=== PATIENT | male | born 1955 | race Two or more races ===

== ENCOUNTER 2024-07-20 13:36 | Outpatient (AMB) | payer OTHER, SELFPAY ==
--- NOTE | 2024-07-20 14:02 | PD.RESCLINIC ---
Vital Signs 07/20/24 14:23 Height 1.6 m Height Method Stated Weight 66.451 kg Weight Measurement Method Standing Scale BMI 25.9 BP 116/66 Blood Pressure Source Automatic Cuff Blood Pressure Location Left Upper Arm Position Sitting Respiration 17 Pulse 91 Pulse Source Monitor Temp 98.8 F Temp Source Oral Allergies/Meds Allergies & Medications Allergies No Known Allergies Allergy (Verified 07/20/24 14:24) Medication Reconciliation needle (disp) 25 gauge 25 gauge x 5/8 #1 ea 10/23/21 [Rx Confirmed 07/20/24] pen needle, diabetic 32 gauge x 1/4 (Droplet Pen Needle) 11/18/21 [History Confirmed 07/20/24] blood-glucose meter,continuous ([employer] [place] 3 [place]) #2 ea 03/28/24 [Rx Confirmed 07/20/24] blood-glucose meter (Accu-Chek Guide Glucose Meter) #1 ea 04/11/24 [Rx Confirmed 07/20/24] amlodipine 10 mg tablet 10 mg PO QDAY #30 tabs 07/13/24 [Rx Confirmed 07/20/24] atorvastatin 20 mg tablet 20 mg PO QDAY #30 tabs 07/13/24 [Rx Confirmed 07/20/24] clopidogrel 75 mg tablet 75 mg PO QDAY #30 tabs 07/13/24 [Rx Confirmed 07/20/24] dicyclomine 20 mg tablet 20 mg PO TID #90 tabs 07/13/24 [Rx Confirmed 07/20/24] insulin glargine 100 unit/mL (3 mL) subcutaneous pen (Basaglar KwikPen U-100 Insulin) 15 unit subcut QDAY 07/13/24 [History Confirmed 07/20/24] losartan 25 mg tablet 50 mg (2 x 25 mg) PO QDAY #30 tabs 07/13/24 [Rx Confirmed 07/20/24] metformin 1,000 mg tablet 1,000 mg PO BID #60 tabs 07/13/24 [Rx Confirmed 07/20/24] semaglutide 14 mg tablet (Rybelsus) 14 mg PO QDAY #30 tabs 07/13/24 [Rx Confirmed 07/20/24] pen needle, diabetic 32 gauge x 1/4 (Comfort EZ Pen [place]) #100 ea 08/03/24 [Rx] blood sugar diagnostic (OneTouch Verio test strips) #100 ea 08/20/24 [Rx] lancets 28 gauge (Lancets,Thin) #100 ea 08/20/24 [Rx] MA Intake Visit Data Collection New Patient or Established: Established Patient (seen at [facility] within 3 years) Seen by Clinical Staff ONLY (RN/MA): No Pain Present Currently: No Pain scale:: 0 Pain Scale Used: Chambers-Orellana/Numerical PCP or OBGYN visit in last 3 months: Yes Smoking Status Smoking Status: Never smoker Immunization / Flu Flu Vaccine in the Last 12 Months: No Flu Vaccine Exclusion Criteria: No Exclusion Criteria Past Medical History Past Medical History NEUROLOGIC: Negative Neurological Disorders, Cerebrovascular Accident, Transient Ischemic Attacks (TIA), Dementia, Alzheimer's Disease, Parkinson's Disease, Brain Tumor, Meningitis, Seizures, Epilepsy, Multiple Sclerosis, Cerebral Palsy, Amyotrophic Lateral Sclerosis (ALS/Giuliana Gehrig's), Guillain-[place] Syndrome, Spina Bifida, Paralysis, Peripheral Neuropathy, Silva's Palsy, Subdural Hematoma, Migraine, Head Trauma, Spinal Cord Injury or Traumatic Brain Injury CARDIAC: Positive Peripheral Vascular Disease and Hypertension; Negative Cardiac Disorders, Myocardial Infarction, Cardiac Arrhythmia, Atrial Fibrillation, Angina, Heart Murmur, Coronary Artery Disease, Atherosclerotic Heart Disease, Hypercholesterolemia, Aneurysm, Congestive Heart Failure, Valvular Heart Disease, Rheumatic Fever, Edema, Pericarditis, Cellulitis, Deep Vein Thrombosis, Hypotension or Varicose Veins RESPIRATORY: Negative Chronic Obstructive Pulmonary Disease (COPD) or Asthma GASTROINTESTINAL: Negative Gastrointestinal Disorders, Hepatitis, Cirrhosis, Pancreatitis, Celiac Disease, Gall Bladder Disease, Gastrointestinal Bleed, Esophageal Varices, Hubbard's Esophagus, Colitis, Ulcerative Colitis, Diverticulitis, Diverticulosis, Ulcer, Irritable Bowel, Crohn's Disease, Obstructive Bowel, Hiatal Hernia, Hemorrhoids, Gastroesophageal Reflux Disease or Obesity GENITOURINARY: Negative Genitourinary Disorders, Renal Disease, Kidney Stones, Polycystic Kidney Disease, Neurogenic Bladder, Inguinal Hernia, Dialysis or Benign Prostatic Hyperplasia REPRODUCTIVE: Negative Fibroids or Testicular Cancer MUSCULOSKELETAL: Negative Muscular Dystrophy, Myasthenia Gravis, Marfan's Syndrome, Arthritis, Rheumatoid Arthritis, Osteoporosis, Degenerative Disk Disease, Gout, Scoliosis, Fibromyalgia, Fractures, Degenerative Joint Disease, Osteomyelitis or Poliovirus ENT: Negative Cataracts, Glaucoma, Blind, Retinal Detachment, Macular Degeneration, Ear Infection, Deafness, Head Trauma or Eye Prosthesis ENDOCRINE: Positive Diabetes Mellitus Type 1 and Diabetes Mellitus Type 2; Negative Endocrine Disorders, Hypoglycemia, Casandra's Syndrome, [place]'s Disease, Hyperthyroidism, Hypothyroidism, Parathyroid Disease, Pituitary Disease, Systemic Lupus Erythematosus, Syndrome of Inappropriate Antidiuretic Hormone (SIADH), Adrenal Disease or Graves' Disease HEMATOLOGIC: Positive Anemia; Negative Blood Disorders, Leukemia, Hemophilia, Thalassemia, Sickle Cell Disease or Clotting Problems OTHER HISTORY: Negative Blood Transfusions, Blood Transfusion Reaction, Anesthesia Reactions, Organ Transplant, MRSA, VRSA, Vancomycin-Resistant Enterococci, Clostridium Difficile, Cancer or Testicular Cancer Family History FAMILY HISTORY: Negative Family Psychiatric Problems, Family Respiratory Disorders, Family Cardiac Disorders, Family Gastrointestinal Problems, Family Cancer, Family Surgery or Family Anesthesia Reaction Surgical History SURGICAL: Negative Cardiac Surgery, Pacemaker, Endocrine Surgery, Thyroidectomy, Ear Surgery, Tympanostomy Tube, Eye Surgery, Nose Surgery, Oral Surgery, Tonsillectomy, Adenoidectomy, Cochlear Implant, Corneal Transplant, Throat Surgery, Abdominal Surgery, Tracheostomy, Nephrectomy, Joint Replacement, Neurologic Surgery, Vasectomy or Organ Transplant Social History SMOKING STATUS: Smoking status: Never smoker SECOND HAND EXPOSURE: second hand exposure: No ALCOHOL: Alcohol Intake: Never ALCOHOL FREQUENCY: Alcohol Intake Frequency: 0-2 Drinks per Day HOUSING: Housing: House LIVES WITH: Lives With: Spouse Patient Brittany Marelytigist Social History Living Situation History Housing: House Housing Other:: pt lives with and dtr Tobacco History Smoking Status: Never smoker Second Hand Smoke Exposure: No Alcohol History Alcohol Intake: Never Alcohol Intake Frequency: 0-2 Drinks per Day Review of Systems Report any current symptoms Only answer those that you have currently: Past Medical History Past Medical History Have you ever been diagnosed with any of the following: Neurological Problems Cerebrovascular Accident (CVA): No Transient Ischemic Attacks (TIA): No Dementia: No Alzheimer's Disease: No Parkinson's Disease: No Brain Tumor: No Meningitis: No Seizures: No Epilepsy: No Multiple Sclerosis: No Cerebral Palsy: No Amyotrophic Lateral Sclerosis (ALS/Giuliana Gehrig's): No Guillain-[place] Syndrome: No Spina Bifida: No Paralysis: No Peripheral Neuropathy: No Silva's Palsy: No Subdural Hematoma: No Migraine: No Head Trauma: No Spinal Cord Injury: No Traumatic Brain Injury: No Cardiology Problems Myocardial Infarction: No Cardiac Arrhythmia: No Atrial Fibrillation: No Angina: No Heart Murmur: No Coronary Artery Disease: No Atherosclerotic Heart Disease: No Peripheral Vascular Disease: Yes Hypercholesterolemia: No Aneurysm: No Congestive Heart Failure: No Valvular Heart Disease: No Rheumatic Fever: No Edema: No Pericarditis: No Cellulitis: No Deep Vein Thrombosis: No Hypertension: Yes Hypotension: No Varicose Veins: No Respiratory Problems Chronic Obstructive Pulmonary Disease (COPD): No Asthma: No Stomache/Intestinal Problems Hepatitis: No Cirrhosis: No Pancreatitis: No Celiac Disease: No Gall Bladder Disease: No Gastrointestinal Bleed: No Esophageal Varices: No Hubbard's Esophagus: No Colitis: No Ulcerative Colitis: No Diverticulitis: No Diverticulosis: No Ulcer: No Irritable Bowel: No Crohn's Disease: No Obstructive Bowel: No Hiatal Hernia: No Hemorrhoids: No Gastroesophageal Reflux Disease: No Obesity: No Genital/Urinary Problems Renal Disease: No Kidney Stones: No Polycystic Kidney Disease: No Neurogenic Bladder: No Inguinal Hernia: No Dialysis: No Benign Prostatic Hyperplasia: No Reproductive Problems Fibroids: No Testicular Cancer: No Musculoskeletal Problems Muscular Dystrophy: No Myasthenia Gravis: No Marfan's Syndrome: No Arthritis: No Rheumatoid Arthritis: No Osteoporosis: No Degenerative Disk Disease: No Gout: No Scoliosis: No Fibromyalgia: No Fractures: No Degenerative Joint Disease: No Osteomyelitis: No Poliovirus: No Head,Eye,Nose,Throat Problems Cataracts: No Glaucoma: No Blind: No Retinal Detachment: No Macular Degeneration: No Chronic Ear Infections: No Deafness: No Eye Prosthesis: No Endocrine Problems Diabetes Mellitus Type 1: Yes Diabetes Mellitus Type 2: Yes Hypoglycemia: No Berkey's Syndrome: No Carlitos's Disease: No Hyperthyroidism: No Hypothyroidism: No Parathyroid Disease: No Pituitary Disease: No Systemic Lupus Erythematosus: No Syndrome of Inappropriate Antidiuretic Hormone: No Adrenal Disease: No Graves' Disease: No Blood Problems Anemia: Yes Leukemia: No Hemophilia: No Thalassemia: No Sickle Cell Disease: No Clotting Problems: No Other Problems Blood Transfusions: No Blood Transfusion Reaction: No Anesthesia Reactions: No Organ Transplant: No MRSA: No VRSA: No Vancomycin-Resistant Enterococci: No Clostridium Difficile: No Cancer: No Surgical History Pacemaker: No Thyroidectomy: No History of Present Illness HPI Narrative Significant Past Medical History: Screening Dates Last Physical: Men?s Health -Abdominal U/S (AAA Screen ? 65-75 yr who have ever smoked): non smopker -PSA: negative Colon cancer screening -Colonoscopy (>=50 yrs): none -Cologuard: 2023 negative Diabetes patients -Ophthalmology Evaluation: 2023 -Monofilament: yes, negative -HbA1c: 5.5 (07/13/24) -Lipid Screen: 2022 Pneumonia Vaccine : Flu Vaccine (everyone): Tetanus (every 10 yrs): Vision Screen: Hearing Screen : Optometry: Dental: Objective/Exam Narrative Physical exam: Constitutional: AOx3, able to speak full sentences HEENT: NC/AT, PERRLA, oral mucosa moist, neck supple CVS: RRR, S1-S2 present, no murmurs RESP: CTAB GI: non distended, non tender to palpation, NBS MSK: full ROM, no peripheral edema, peripheral pulses present except RLE, RBKA Skin: warm and dry, no rashes Neuro: crop duster helper II-XII grossly intact. Sensation grossly intact. Assessment & Plan Diagnosis / Problem List (1) DM2 (diabetes mellitus, type 2): Status: Acute Qualifiers: Diabetes mellitus complication status: with other specified complication Diabetes mellitus longterm insulin use: with terminal clerk use Qualified Code(s): E11.69 - Type 2 diabetes mellitus with other specified complication; Z79.4 - [facility]CI (current) use of insulin Assessment & Plan: A1c was 9.3 (2021) A1c was 7.4 (04/2024) uACR was 4 (04/2024) Plan: -continue current management -order labs (2) HLD (hyperlipidemia): Status: Acute Qualifiers: Hyperlipidemia type: mixed hyperlipidemia Qualified Code(s): E78.2 - Mixed hyperlipidemia Assessment & Plan: last known LDL was 40 (2021) Plan: -low does statin (3) Hypertension: Status: Acute Qualifiers: Hypertension type: primary hypertension Qualified Code(s): I10 - Essential (primary) hypertension Assessment & Plan: controlled Plan: -continue current management -DASH diet recommended -physical activity recommended (4) Atherosclerosis of [place] arteries of extremities with gangrene, right leg: Status: Acute Assessment & Plan: controlled/asymptomatic Plan: -cont plavix (5) Diabetes mellitus with foot ulcer and gangrene: Status: Acute Assessment & Plan: stable, no acute problems at this time Plan: -follow clinically Additional Assessment Attending note: I, Reji Solares MD, attest that I was physically present for the simon portions of the service and evaluated the patient with the resident and I reviewed and discussed the case with the resident and agree with the resident's findings and plans of care as documented above. Follow-up visit. Diabetes self-care reviewed including diet, exercise, footcare, eye care. Most recent hemoglobin A1c available is 5.5 from June. Continue with present medication regimen. We will update labs at the 3-month point. Tolerating low-dose statin. Blood pressure under reasonable control. Remains on Plavix for PAD/atherosclerosis. Status post right BKA. Reji Solares MD Advanced Care Planning Advance care planning discussed with:: patient and significant other Physician Billing Established Patient Established Patient: E/M Level 3-CPT 91956 Office Procedures [facility] Level of Care Nursing/Assessment Patient Status: Established Patient Nursing Assessment/Reassessment: Medication Reconciliation, Update PMH in EMR and Vital Signs Coordination of Care: Complex Care and Chronic Disease 1-5, Education Complex Pt/Fam, Results/Orders obtained and Staff clarify orders Established Patient Charge Established Patient Point Assignment: 90 Established Patient Point Charge: EP Level 3 (80-115)
[2024-07-20 14:23] VITALS: BP 116/66; PULSE 91; RESP 17; TEMP 37.1; BMI 25.9
== END 2024-07-20 14:30 | disposition home or self-care (01) ==
LOC: HODAHC 13:36
PROVIDERS: PCP Student in an Organized Health Care Education/Training Program; Referring Provider Student in an Organized Health Care Education/Training Program; Supervising Provider Internal Medicine; Visit Provider Student in an Organized Health Care Education/Training Program
DX: E11.51 Type 2 diabetes mellitus with diabetic peripheral angiopathy without gangrene (principal); I70.201 Unspecified atherosclerosis of native arteries of extremities, right leg; E78.2 Mixed hyperlipidemia; I10 Essential (primary) hypertension; Z79.4 Long term (current) use of insulin; E11.621 Type 2 diabetes mellitus with foot ulcer; L97.509 Non-pressure chronic ulcer of other part of unspecified foot with unspecified severity
CPT/HCPCS: 99213; G0463

== ENCOUNTER 2024-10-26 14:28 | Outpatient (AMB) | payer OTHER, SELFPAY ==
--- NOTE | 2024-10-26 14:16 | ACNOTE_ITS ---
Vital Signs 10/26/24 14:18 Height 1.6 m Height Method Stated Weight 66.451 kg Weight Measurement Method Standing Scale BMI 25.9 BP 114/69 Blood Pressure Source Automatic Cuff Blood Pressure Location Left Upper Arm Position Sitting Respiration 18 Pulse 96 Pulse Source Monitor Temp 98.2 F Temp Source Oral Pulse Oximetry (%) 95 Oxygen Delivery Method Room Air Allergies/Meds Allergies & Medications Allergies No Known Allergies Allergy (Verified 10/26/24 14:19) Medication Reconciliation needle (disp) 25 gauge 25 gauge x 5/8 #1 ea 10/23/21 [Rx Confirmed 11/09/24] blood-glucose meter,continuous (MongoSluiceyle Mike 3 [place]) #2 ea 03/28/24 [Rx Confirmed 11/09/24] blood-glucose meter (Accu-Chek Guide Glucose Meter) #1 ea 04/11/24 [Rx Confirmed 11/09/24] amlodipine 10 mg tablet 10 mg PO QDAY #30 tabs 11/09/24 [Rx] atorvastatin 20 mg tablet 20 mg PO QDAY #30 tabs 11/09/24 [Rx] blood sugar diagnostic (OneTouch Verio test strips) #100 ea 11/09/24 [Rx] clopidogrel 75 mg tablet 75 mg PO QDAY #30 tabs 11/09/24 [Rx] dicyclomine 20 mg tablet 20 mg PO TID #90 tabs 11/09/24 [Rx] insulin glargine 100 unit/mL (3 mL) subcutaneous pen (Basaglar KwikPen U-100 Insulin) 15 unit (0.15 mL) subcut QDAY #15 mL 11/09/24 [Rx] lancets 28 gauge (Lancets,Thin) #100 ea 11/09/24 [Rx] losartan 25 mg tablet 50 mg (2 x 25 mg) PO QDAY #30 tabs 11/09/24 [Rx] metformin 1,000 mg tablet 1,000 mg PO BID #60 tabs 11/09/24 [Rx] pen needle, diabetic 32 gauge x 1/4 (Comfort EZ Pen [place]) #100 ea 11/09/24 [Rx] MA Intake Visit Data Collection New Patient or Established: Established Patient (seen at [facility] within 3 years) Seen by Clinical Staff ONLY (RN/MA): No Pain Present Currently: No Pain scale:: 0 Pain Scale Used: [employer]-[place]rell[employer] Required: No PCP or OBGYN visit in last 3 months: Yes Do You Feel Safe at Home: Yes Authorities Contacted: N/A Smoking Status Smoking Status: Never smoker Immunization / Flu Flu Vaccine in the Last 12 Months: No Flu Vaccine Exclusion Criteria: No Exclusion Criteria Past Medical History Past Medical History NEUROLOGIC: Negative Neurological Disorders, Cerebrovascular Accident, Transient Ischemic Attacks (TIA), Dementia, Alzheimer's Disease, Parkinson's Disease, Brain Tumor, Meningitis, Seizures, Epilepsy, Multiple Sclerosis, Cerebral Palsy, Amyotrophic Lateral Sclerosis (ALS/Giuliana Gehrig's), Guillain-[place] Syndrome, Spina Bifida, Paralysis, Peripheral Neuropathy, Silva's Palsy, Subdural Hematoma, Migraine, Head Trauma, Spinal Cord Injury or Traumatic Brain Injury CARDIAC: Positive Peripheral Vascular Disease and Hypertension; Negative Cardiac Disorders, Myocardial Infarction, Cardiac Arrhythmia, Atrial Fibrillation, Angina, Heart Murmur, Coronary Artery Disease, Atherosclerotic Heart Disease, Hypercholesterolemia, Aneurysm, Congestive Heart Failure, Valvular Heart Disease, Rheumatic Fever, Edema, Pericarditis, Cellulitis, Deep Vein Thrombosis, Hypotension or Varicose Veins RESPIRATORY: Negative Chronic Obstructive Pulmonary Disease (COPD) or Asthma GASTROINTESTINAL: Negative Gastrointestinal Disorders, Hepatitis, Cirrhosis, Pancreatitis, Celiac Disease, Gall Bladder Disease, Gastrointestinal Bleed, Esophageal Varices, Hubbard's Esophagus, Colitis, Ulcerative Colitis, Diverticulitis, Diverticulosis, Ulcer, Irritable Bowel, Crohn's Disease, Obstructive Bowel, Hiatal Hernia, Hemorrhoids, Gastroesophageal Reflux Disease or Obesity GENITOURINARY: Negative Genitourinary Disorders, Renal Disease, Kidney Stones, Polycystic Kidney Disease, Neurogenic Bladder, Inguinal Hernia, Dialysis or Benign Prostatic Hyperplasia REPRODUCTIVE: Negative Fibroids or Testicular Cancer MUSCULOSKELETAL: Negative Muscular Dystrophy, Myasthenia Gravis, Marfan's Syndrome, Arthritis, Rheumatoid Arthritis, Osteoporosis, Degenerative Disk Disease, Gout, Scoliosis, Fibromyalgia, Fractures, Degenerative Joint Disease, Osteomyelitis or Poliovirus ENT: Negative Cataracts, Glaucoma, Blind, Retinal Detachment, Macular Deg eneration, Ear Infection, Deafness, Head Trauma or Eye Prosthesis ENDOCRINE: Positive Diabetes Mellitus Type 1 and Diabetes Mellitus Type 2; Negative Endocrine Disorders, Hypoglycemia, Casandra's Syndrome, [place]'s Disease, Hyperthyroidism, Hypothyroidism, Parathyroid Disease, Pituitary Disease, Systemic Lupus Erythematosus, Syndrome of Inappropriate Antidiuretic Hormone (SIADH), Adrenal Disease or Graves' Disease HEMATOLOGIC: Positive Anemia; Negative Blood Disorders, Leukemia, Hemophilia, Thalassemia, Sickle Cell Disease or Clotting Problems OTHER HISTORY: Negative Blood Transfusions, Blood Transfusion Reaction, Anesthesia Reactions, Organ Transplant, MRSA, VRSA, Vancomycin-Resistant Enterococci, Clostridium Difficile, Cancer or Testicular Cancer Family History FAMILY HISTORY: Negative Family Psychiatric Problems, Family Respiratory Disorders, Family Cardiac Disorders, Family Gastrointestinal Problems, Family Cancer, Family Surgery or Family Anesthesia Reaction Surgical History SURGICAL: Negative Cardiac Surgery, Pacemaker, Endocrine Surgery, Thyroidectomy, Ear Surgery, Tympanostomy Tube, Eye Surgery, Nose Surgery, Oral Surgery, Tonsillectomy, Adenoidectomy, Cochlear Implant, Corneal Transplant, Throat Surgery, Abdominal Surgery, Tracheostomy, Nephrectomy, Joint Replacement, Neurologic Surgery, Vasectomy or Organ Transplant Social History SMOKING STATUS: Smoking status: Never smoker SECOND HAND EXPOSURE: second hand exposure: No ALCOHOL: Alcohol Intake: Never ALCOHOL FREQUENCY: Alcohol Intake Frequency: 0-2 Drinks per Day HOUSING: Housing: House LIVES WITH: Lives With: Spouse Patient Brittany Zhang Social History Living Situation History Housing: House Housing Other:: pt lives with and dtr Tobacco History Smoking Status: Never smoker Second Hand Smoke Exposure: No Alcohol History Alcohol Intake: Never Alcohol Intake Frequency: 0-2 Drinks per Day Domestic Abuse History Do You Feel Safe at Home: Yes Review of Systems Report any current symptoms Only answer those that you have currently: Past Medical History Past Medical History Have you ever been diagnosed with any of the following: Neurological Problems Cerebrovascular Accident (CVA): No Transient Ischemic Attacks (TIA): No Dementia: No Alzheimer's Disease: No Parkinson's Disease: No Brain Tumor: No Meningitis: No Seizures: No Epilepsy: No Multiple Sclerosis: No Cerebral Palsy: No Amyotrophic Lateral Sclerosis (ALS/Giuliana Gehrig's): No Guillain-[place] Syndrome: No Spina Bifida: No Paralysis: No Peripheral Neuropathy: No Silva's Palsy: No Subdural Hematoma: No Migraine: No Head Trauma: No Spinal Cord Injury: No Traumatic Brain Injury: No Cardiology Problems Myocardial Infarction: No Cardiac Arrhythmia: No Atrial Fibrillation: No Angina: No Heart Murmur: No Coronary Artery Disease: No Atherosclerotic Heart Disease: No Peripheral Vascular Disease: Yes Hypercholesterolemia: No Aneurysm: No Congestive Heart Failure: No Valvular Heart Disease: No Rheumatic Fever: No Edema: No Pericarditis: No Cellulitis: No Deep Vein Thrombosis: No Hypertension: Yes Hypotension: No Varicose Veins: No Respiratory Problems Chronic Obstructive Pulmonary Disease (COPD): No Asthma: No Stomache/Intestinal Problems Hepatitis: No Cirrhosis: No Pancreatitis: No Celiac Disease: No Gall Bladder Disease: No Gastrointestinal Bleed: No Esophageal Varices: No Hubbard's Esophagus: No Colitis: No Ulcerative Colitis: No Diverticulitis: No Diverticulosis: No Ulcer: No Irritable Bowel: No Crohn's Disease: No Obstructive Bowel: No Hiatal Hernia: No Hemorrhoids: No Gastroesophageal Reflux Disease: No Obesity: No Genital/Urinary Problems Renal Disease: No Kidney Stones: No Polycystic Kidney Disease: No Neurogenic Bladder: No Inguinal Hernia: No Dialysis: No Benign Prostatic Hyperplasia: No Reproductive Problems Fibroids: No Testicular Cancer: No Musculoskeletal Problems Muscular Dystrophy: No Myasthenia Gravis: No Marfan's Syndrome: No Arthritis: No Rheumatoid Arthritis: No Osteoporosis: No Degenerative Disk Disease: No Gout: No Scoliosis: No Fibromyalgia: No Fractures: No Degenerative Joint Disease: No Osteomyelitis: No Poliovirus: No Head,Eye,Nose,Throat Problems Cataracts: No Glaucoma: No Blind: No Retinal Detachment: No Macular Degeneration: No Chronic Ear Infections: No Deafness: No Eye Prosthesis: No Endocrine Problems Diabetes Mellitus Type 1: Yes Diabetes Mellitus Type 2: Yes Hypoglycemia: No Meridian's Syndrome: No Carlitos's Disease: No Hyperthyroidism: No Hypothyroidism: No Parathyroid Disease: No Pituitary Disease: No Systemic Lupus Erythematosus: No Syndrome of Inappropriate Antidiuretic Hormone: No Adrenal Disease: No Graves' Disease: No Blood Problems Anemia: Yes Leukemia: No Hemophilia: No Thalassemia: No Sickle Cell Disease: No Clotting Problems: No Other Problems Blood Transfusions: No Blood Transfusion Reaction: No Anesthesia Reactions: No Organ Transplant: No MRSA: No VRSA: No Vancomycin-Resistant Enterococci: No Clostridium Difficile: No Cancer: No Surgical History Pacemaker: No Thyroidectomy: No History of Present Illness HPI Narrative 11/09/2023: Patient presented today to clinic for lab work. Patient is feeling well, denies any symptoms. Discussed vaccinations, diet and exercise. Patient is compliant with medications. Review of Systems Review of Systems Systems Reviewed: All systems reviewed, normal except as documented Objective/Exam Narrative Physical exam: Constitutional: AOx3, able to speak full sentences HEENT: NC/AT, PERRLA, oral mucosa moist, neck supple CVS: RRR, S1-S2 present, no murmurs RESP: CTAB GI: non distended, non tender to palpation, NBS MSK: full ROM, no peripheral edema, peripheral pulses present Skin: warm and dry, no rashes Neuro: frame aligner II-XII grossly intact. Sensation grossly intact. 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 Diabetes mellitus complication status: with other specified complication Qualified Code(s): E11.69 - Type 2 diabetes mellitus with other specified complication; Z79.4 - jail (current) use of insulin Assessment & Plan: A1c was 9.3 (2021) A1c was 7.4 (04/2024) uACR was 4 (04/2024) A1c was 6.8 11/10 Plan: -continue current management -order labs (2) HLD (hyperlipidemia): Status: Acute Qualifiers: Hyperlipidemia type: mixed hyperlipidemia Qualified Code(s): E78.2 - Mixed hyperlipidemia Assessment & Plan: last known LDL was 40 (2021) Plan: -low does statin (3) Hypertension: Status: Acute Qualifiers: Hypertension type: primary hypertension Qualified Code(s): I10 - Essential (primary) hypertension Assessment & Plan: controlled Plan: -continue current management -DASH diet recommended -physical activity recommended (4) Atherosclerosis of [place] arteries of extremities with gangrene, right leg: Status: Acute Assessment & Plan: controlled/asymptomatic Plan: -cont plavix (5) Diabetes mellitus with foot ulcer and gangrene: Status: Acute Assessment & Plan: stable, no acute problems at this time Plan: -follow clinically Advanced Care Planning Advance care planning discussed with:: patient Office Procedures [facility] Level of Care Nursing/Assessment Patient Status: Established Patient Nursing Assessment/Reassessment: Medication Reconciliation, Update PMH in EMR and Vital Signs Coordination of Care: Complex Care and Chronic Disease 1-5, Consent,records obtained, informed consent, Education Simp Pt/Fam, Lab and Imaging orders and Staff clarify orders Established Patient Charge Established Patient Point Assignment: 100 Established Patient Point Charge: EP Level 3 (80-115)
[2024-10-26 14:18] VITALS: BP 114/69; PULSE 96; RESP 18; TEMP 36.8; O2SAT 95; BMI 25.9
== END 2024-10-26 14:55 | disposition home or self-care (01) ==
LOC: HODAHC 14:28
PROVIDERS: PCP Student in an Organized Health Care Education/Training Program; Referring Provider Student in an Organized Health Care Education/Training Program; Supervising Provider Internal Medicine; Visit Provider Student in an Organized Health Care Education/Training Program
DX: E11.52 Type 2 diabetes mellitus with diabetic peripheral angiopathy with gangrene (principal); I70.261 Atherosclerosis of native arteries of extremities with gangrene, right leg; E11.621 Type 2 diabetes mellitus with foot ulcer; Z79.4 Long term (current) use of insulin; E78.5 Hyperlipidemia, unspecified; I10 Essential (primary) hypertension
CPT/HCPCS: 99213; G0463

== ENCOUNTER 2024-11-09 14:15 | Outpatient (AMB) | payer OTHER, SELFPAY ==
[2024-11-09 14:23] VITALS: BP 110/67; PULSE 94; RESP 18; TEMP 36.6; O2SAT 95; BMI 26.7
--- NOTE | 2024-11-09 14:23 | PD.RESCLINIC ---
Vital Signs 11/09/24 14:23 Height 1.6 m Height Method Stated Weight 68.492 kg Weight Measurement Method Standing Scale BMI 26.7 BP 110/67 Blood Pressure Source Automatic Cuff Blood Pressure Location Left Upper Arm Position Sitting Respiration 18 Pulse 94 Pulse Source Monitor Temp 97.8 F Temp Source Oral Pulse Oximetry (%) 95 Oxygen Delivery Method Room Air Allergies/Meds Allergies & Medications Allergies No Known Allergies Allergy (Verified 10/26/24 14:19) Medication Reconciliation needle (disp) 25 gauge 25 gauge x 5/8 #1 ea 10/23/21 [Rx Confirmed 11/09/24] blood-glucose meter,continuous (Credportyle Mike 3 [place]) #2 ea 03/28/24 [Rx Confirmed 11/09/24] blood-glucose meter (Accu-Chek Guide Glucose Meter) #1 ea 04/11/24 [Rx Confirmed 11/09/24] amlodipine 10 mg tablet 10 mg PO QDAY #30 tabs 11/09/24 [Rx] atorvastatin 20 mg tablet 20 mg PO QDAY #30 tabs 11/09/24 [Rx] blood sugar diagnostic (OneTouch Verio test strips) #100 ea 11/09/24 [Rx] clopidogrel 75 mg tablet 75 mg PO QDAY #30 tabs 11/09/24 [Rx] dicyclomine 20 mg tablet 20 mg PO TID #90 tabs 11/09/24 [Rx] insulin glargine 100 unit/mL (3 mL) subcutaneous pen (Basaglar KwikPen U-100 Insulin) 15 unit (0.15 mL) subcut QDAY #15 mL 11/09/24 [Rx] lancets 28 gauge (Lancets,Thin) #100 ea 11/09/24 [Rx] losartan 25 mg tablet 50 mg (2 x 25 mg) PO QDAY #30 tabs 11/09/24 [Rx] metformin 1,000 mg tablet 1,000 mg PO BID #60 tabs 11/09/24 [Rx] pen needle, diabetic 32 gauge x 1/4 (Comfort EZ Pen [place]) #100 ea 11/09/24 [Rx] MA Intake Visit Data Collection New Patient or Established: Established Patient (seen at [facility] within 3 years) Seen by Clinical Staff ONLY (RN/MA): No Pain Present Currently: No Pain scale:: 0 Pain Scale Used: Chambers-Orellana/Numerical Framing Carpenter Required: Yes PCP or OBGYN visit in last 3 months: Yes Hx Now: No Do You Feel Safe at Home: Yes Authorities Contacted: N/A Smoking Status Smoking Status: Never smoker Immunization / Flu Flu Vaccine in the Last 12 Months: No Flu Vaccine Exclusion Criteria: No Exclusion Criteria Past Medical History Past Medical History NEUROLOGIC: Negative Neurological Disorders, Cerebrovascular Accident, Transient Ischemic Attacks (TIA), Dementia, Alzheimer's Disease, Parkinson's Disease, Brain Tumor, Meningitis, Seizures, Epilepsy, Multiple Sclerosis, Cerebral Palsy, Amyotrophic Lateral Sclerosis (ALS/Giuliana Gehrig's), Guillain-[place] Syndrome, Spina Bifida, Paralysis, Peripheral Neuropathy, Silva's Palsy, Subdural Hematoma, Migraine, Head Trauma, Spinal Cord Injury or Traumatic Brain Injury CARDIAC: Positive Peripheral Vascular Disease and Hypertension; Negative Cardiac Disorders, Myocardial Infarction, Cardiac Arrhythmia, Atrial Fibrillation, Angina, Heart Murmur, Coronary Artery Disease, Atherosclerotic Heart Disease, Hypercholesterolemia, Aneurysm, Congestive Heart Failure, Valvular Heart Disease, Rheumatic Fever, Edema, Pericarditis, Cellulitis, Deep Vein Thrombosis, Hypotension or Varicose Veins RESPIRATORY: Negative Chronic Obstructive Pulmonary Disease (COPD) or Asthma GASTROINTESTINAL: Negative Gastrointestinal Disorders, Hepatitis, Cirrhosis, Pancreatitis, Celiac Disease, Gall Bladder Disease, Gastrointestinal Bleed, Esophageal Varices, Hubbard's Esophagus, Colitis, Ulcerative Colitis, Diverticulitis, Diverticulosis, Ulcer, Irritable Bowel, Crohn's Disease, Obstructive Bowel, Hiatal Hernia, Hemorrhoids, Gastroesophageal Reflux Disease or Obesity GENITOURINARY: Negative Genitourinary Disorders, Renal Disease, Kidney Stones, Polycystic Kidney Disease, Neurogenic Bladder, Inguinal Hernia, Dialysis or Benign Prostatic Hyperplasia REPRODUCTIVE: Negative Fibroids or Testicular Cancer MUSCULOSKELETAL: Negative Muscular Dystrophy, Myasthenia Gravis, Marfan's Syndrome, Arthritis, Rheumatoid Arthritis, Osteoporosis, Degenerative Disk Disease, Gout, Scoliosis, Fibromyalgia, Fractures, Degenerative Joint Disease, Osteomyelitis or Poliovirus ENT: Negative Cataracts, Glaucoma, Blind, Retinal Detachment, Macular Degeneration, Ear Infection, Deafness, Head Trauma or Eye Prosthesis ENDOCRINE: Positive Diabetes Mellitus Type 1 and Diabetes Mellitus Type 2; Negative Endocrine Disorders, Hypoglycemia, [place]'s Syndrome, Garza's Disease, Hyperthyroidism, Hypothyroidism, Parathyroid Disease, Pituitary Disease, Systemic Lupus Erythematosus, Syndrome of Inappropriate Antidiuretic Hormone (SIADH), Adrenal Disease or Graves' Disease HEMATOLOGIC: Positive Anemia; Negative Blood Disorders, Leukemia, Hemophilia, Thalassemia, Sickle Cell Disease or Clotting Problems OTHER HISTORY: Negative Blood Transfusions, Blood Transfusion Reaction, Anesthesia Reactions, Organ Transplant, MRSA, VRSA, Vancomycin-Resistant Enterococci, Clostridium Difficile, Cancer or Testicular Cancer Family History FAMILY HISTORY: Negative Family Psychiatric Problems, Family Respiratory Disorders, Family Cardiac Disorders, Family Gastrointestinal Problems, Family Cancer, Family Surgery or Family Anesthesia Reaction Surgical History SURGICAL: Negative Cardiac Surgery, Pacemaker, Endocrine Surgery, Thyroidectomy, Ear Surgery, Tympanostomy Tube, Eye Surgery, Nose Surgery, Oral Surgery, Tonsillectomy, Adenoidectomy, Cochlear Implant, Corneal Transplant, Throat Surgery, Abdominal Surgery, Tracheostomy, Nephrectomy, Joint Replacement, Neurologic Surgery, Vasectomy or Organ Transplant Social History SMOKING STATUS: Smoking status: Never smoker SECOND HAND EXPOSURE: second hand exposure: No ALCOHOL: Alcohol Intake: Never ALCOHOL FREQUENCY: Alcohol Intake Frequency: 0-2 Drinks per Day HOUSING: Housing: House LIVES WITH: Lives With: Spouse Patient Brittany Zhang Social History Living Situation History Housing: House Housing Other:: pt lives with and dtr Tobacco History Smoking Status: Never smoker Second Hand Smoke Exposure: No Alcohol History Alcohol Intake: Never Alcohol Intake Frequency: 0-2 Drinks per Day Domestic Abuse History Do You Feel Safe at Home: Yes Review of Systems Report any current symptoms Only answer those that you have currently: Past Medical History Past Medical History Have you ever been diagnosed with any of the following: Neurological Problems Cerebrovascular Accident (CVA): No Transient Ischemic Attacks (TIA): No Dementia: No Alzheimer's Disease: No Parkinson's Disease: No Brain Tumor: No Meningitis: No Seizures: No Epilepsy: No Multiple Sclerosis: No Cerebral Palsy: No Amyotrophic Lateral Sclerosis (ALS/Giuliana Gehrig's): No Guillain-[place] Syndrome: No Spina Bifida: No Paralysis: No Peripheral Neuropathy: No Silva's Palsy: No Subdural Hematoma: No Migraine: No Head Trauma: No Spinal Cord Injury: No Traumatic Brain Injury: No Cardiology Problems Myocardial Infarction: No Cardiac Arrhythmia: No Atrial Fibrillation: No Angina: No Heart Murmur: No Coronary Artery Disease: No Atherosclerotic Heart Disease: No Peripheral Vascular Disease: Yes Hypercholesterolemia: No Aneurysm: No Congestive Heart Failure: No Valvular Heart Disease: No Rheumatic Fever: No Edema: No Pericarditis: No Cellulitis: No Deep Vein Thrombosis: No Hypertension: Yes Hypotension: No Varicose Veins: No Respiratory Problems Chronic Obstructive Pulmonary Disease (COPD): No Asthma: No Stomache/Intestinal Problems Hepatitis: No Cirrhosis: No Pancreatitis: No Celiac Disease: No Gall Bladder Disease: No Gastrointestinal Bleed: No Esophageal Varices: No Hubbard's Esophagus: No Colitis: No Ulcerative Colitis: No Diverticulitis: No Diverticulosis: No Ulcer: No Irritable Bowel: No Crohn's Disease: No Obstructive Bowel: No Hiatal Hernia: No Hemorrhoids: No Gastroesophageal Reflux Disease: No Obesity: No Genital/Urinary Problems Renal Disease: No Kidney Stones: No Polycystic Kidney Disease: No Neurogenic Bladder: No Inguinal Hernia: No Dialysis: No Benign Prostatic Hyperplasia: No Reproductive Problems Fibroids: No Testicular Cancer: No Musculoskeletal Problems Muscular Dystrophy: No Myasthenia Gravis: No Marfan's Syndrome: No Arthritis: No Rheumatoid Arthritis: No Osteoporosis: No Degenerative Disk Disease: No Gout: No Scoliosis: No Fibromyalgia: No Fractures: No Degenerative Joint Disease: No Osteomyelitis: No Poliovirus: No Head,Eye,Nose,Throat Problems Cataracts: No Glaucoma: No Blind: No Retinal Detachment: No Macular Degeneration: No Chronic Ear Infections: No Deafness: No Eye Prosthesis: No Endocrine Problems Diabetes Mellitus Type 1: Yes Diabetes Mellitus Type 2: Yes Hypoglycemia: No [place]'s Syndrome: No Carlitos's Disease: No Hyperthyroidism: No Hypothyroidism: No Parathyroid Disease: No Pituitary Disease: No Systemic Lupus Erythematosus: No Syndrome of Inappropriate Antidiuretic Hormone: No Adrenal Disease: No Graves' Disease: No Blood Problems Anemia: Yes Leukemia: No Hemophilia: No Thalassemia: No Sickle Cell Disease: No Clotting Problems: No Other Problems Blood Transfusions: No Blood Transfusion Reaction: No Anesthesia Reactions: No Organ Transplant: No MRSA: No VRSA: No Vancomycin-Resistant Enterococci: No Clostridium Difficile: No Cancer: No Surgical History Pacemaker: No Thyroidectomy: No History of Present Illness HPI Narrative 11/09/2023: Patient presented today to clinic for lab work. Patient is feeling well, denies any symptoms. Discussed vaccinations, diet and exercise. Patient is compliant with medications. 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 Sensation grossly intact. 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 Assessment & Plan: A1c was 9.3 (2021) A1c was 7.4 (04/2024) uACR was 4 (04/2024) A1c was 6.8 11/10 Plan: -continue current management -order labs (2) HLD (hyperlipidemia): Status: Acute Qualifiers: Hyperlipidemia type: mixed hyperlipidemia Qualified Code(s): E78.2 - Mixed hyperlipidemia Assessment & Plan: last known LDL was 40 (2021) Plan: -low does statin (3) Hypertension: Status: Acute Qualifiers: Hypertension type: primary hypertension Qualified Code(s): I10 - Essential (primary) hypertension Assessment & Plan: controlled Plan: -continue current management -DASH diet recommended -physical activity recommended (4) Atherosclerosis of [place] arteries of extremities with gangrene, right leg: Status: Acute Assessment & Plan: controlled/asymptomatic Plan: -cont plavix (5) Diabetes mellitus with foot ulcer and gangrene: Status: Acute Assessment & Plan: stable, no acute problems at this time Plan: -follow clinically Additional Assessment Internal Medicine Attending Note: Case discussed with and agree with note and management plan of Resident Physician as per Resident's Note above. Issues of concern for present visit are as follows: Follow-up visit. Diabetes self-care reviewed including diet, exercise, footcare, eye care. Tolerating insulin. Hemoglobin A1c has been trending down towards normal range. Reports no hypoglycemia. For now continue present management. Remains on low-dose statin for hyperlipidemia. Blood pressure is under reasonably good control. Remains on Plavix due to PAD. Labs to be ordered. Reji Solares MD Advanced Care Planning Advance care planning discussed with:: patient Physician Billing Established Patient Established Patient: E/M Level 3-CPT 18667 Office Procedures [facility] Level of Care Nursing/Assessment Patient Status: Established Patient Nursing Assessment/Reassessment: Medication Reconciliation, Update PMH in EMR and Vital Signs Coordination of Care: Complex Care and Chronic Disease 1-5, Consent,records obtained, informed consent, Education Simp Pt/Fam, Results/Orders obtained and Staff clarify orders Established Patient Charge Established Patient Point Assignment: 90 Established Patient Point Charge: Level 3 (80-115)
== END 2024-11-09 15:25 | disposition home or self-care (01) ==
LOC: HODAHC 14:15
PROVIDERS: PCP Student in an Organized Health Care Education/Training Program; Referring Provider Student in an Organized Health Care Education/Training Program; Supervising Provider Internal Medicine; Visit Provider Student in an Organized Health Care Education/Training Program
DX: E11.621 Type 2 diabetes mellitus with foot ulcer (principal); L97.509 Non-pressure chronic ulcer of other part of unspecified foot with unspecified severity; E11.52 Type 2 diabetes mellitus with diabetic peripheral angiopathy with gangrene; I70.261 Atherosclerosis of native arteries of extremities with gangrene, right leg; I10 Essential (primary) hypertension; E78.5 Hyperlipidemia, unspecified; Z79.4 Long term (current) use of insulin
CPT/HCPCS: 99213; G0463

== ENCOUNTER 2025-01-04 14:08 | Outpatient (AMB) | payer OTHER, SELFPAY ==
--- NOTE | 2025-01-04 14:18 | PD.RESCLINIC ---
Vital Signs 01/04/25 14:19 Height 1.6 m Height Method Stated Weight 69.57 kg Weight Measurement Method Standing Scale BMI 27.1 BP 158/74 H Blood Pressure Source Automatic Cuff Blood Pressure Location Right Upper Arm Position Sitting Respiration 16 Pulse 102 H Pulse Source Monitor Temp 98.2 F Temp Source Temporal Artery Scan Pulse Oximetry (%) 96 Oxygen Delivery Method Room Air Allergies/Meds Allergies & Medications Allergies No Known Allergies Allergy (Verified 01/04/25 14:19) Medication Reconciliation needle (disp) 25 gauge 25 gauge x 5/8 #1 ea 10/23/21 [Rx Confirmed 01/04/25] blood-glucose meter,continuous (BlooBoxStyle Mike 3 [place]) #2 ea 03/28/24 [Rx Confirmed 01/04/25] blood-glucose meter (Accu-Chek Guide Glucose Meter) #1 ea 04/11/24 [Rx Confirmed 01/04/25] amlodipine 10 mg tablet 10 mg PO QDAY #30 tabs 11/09/24 [Rx Confirmed 01/04/25] atorvastatin 20 mg tablet 20 mg PO QDAY #30 tabs 11/09/24 [Rx Confirmed 01/04/25] blood sugar diagnostic (OneTouch Verio test strips) #100 ea 11/09/24 [Rx Confirmed 01/04/25] clopidogrel 75 mg tablet 75 mg PO QDAY #30 tabs 11/09/24 [Rx Confirmed 01/04/25] dicyclomine 20 mg tablet 20 mg PO TID #90 tabs 11/09/24 [Rx Confirmed 01/04/25] insulin glargine 100 unit/mL (3 mL) subcutaneous pen (Basaglar KwikPen U-100 Insulin) 15 unit (0.15 mL) subcut QDAY #15 mL 11/09/24 [Rx Confirmed 01/04/25] lancets 28 gauge (Lancets,Thin) #100 ea 11/09/24 [Rx Confirmed 01/04/25] losartan 25 mg tablet 50 mg (2 x 25 mg) PO QDAY #30 tabs 11/09/24 [Rx Confirmed 01/04/25] metformin 1,000 mg tablet 1,000 mg PO BID #60 tabs 11/09/24 [Rx Confirmed 01/04/25] pen needle, diabetic 32 gauge x 1/4 (Comfort EZ Pen [place]) #100 ea 11/09/24 [Rx Confirmed 01/04/25] capsaicin 0.1 % topical cream 1 applic topical BID #60 grams 01/04/25 [Rx] valacyclovir 1 gram tablet 1,000 mg PO TID #30 tabs 01/04/25 [Rx] MA Intake Visit Data Collection New Patient or Established: Established Patient (seen at [facility] within 3 years) Seen by Clinical Staff ONLY (RN/MA): No Pain Present Currently: No Pain scale:: 0 Pain Scale Used: Chambers-Orellana/Numerical Chrome Plater Required: No PCP or OBGYN visit in last 3 months: Yes Hx Now: No Do You Feel Safe at Home: Yes Authorities Contacted: N/A Smoking Status Smoking Status: Never smoker Immunization / Flu Flu Vaccine in the Last 12 Months: No Flu Vaccine Exclusion Criteria: No Exclusion Criteria Past Medical History Past Medical History NEUROLOGIC: Negative Neurological Disorders, Cerebrovascular Accident, Transient Ischemic Attacks (TIA), Dementia, Alzheimer's Disease, Parkinson's Disease, Brain Tumor, Meningitis, Seizures, Epilepsy, Multiple Sclerosis, Cerebral Palsy, Amyotrophic Lateral Sclerosis (ALS/Giuliana Gehrig's), Guillain-[place] Syndrome, Spina Bifida, Paralysis, Peripheral Neuropathy, Silva's Palsy, Subdural Hematoma, Migraine, Head Trauma, Spinal Cord Injury or Traumatic Brain Injury CARDIAC: Positive Peripheral Vascular Disease and Hypertension; Negative Cardiac Disorders, Myocardial Infarction, Cardiac Arrhythmia, Atrial Fibrillation, Angina, Heart Murmur, Coronary Artery Disease, Atherosclerotic Heart Disease, Hypercholesterolemia, Aneurysm, Congestive Heart Failure, Valvular Heart Disease, Rheumatic Fever, Edema, Pericarditis, Cellulitis, Deep Vein Thrombosis, Hypotension or Varicose Veins RESPIRATORY: Negative Chronic Obstructive Pulmonary Disease (COPD) or Asthma GASTROINTESTINAL: Negative Gastrointestinal Disorders, Hepatitis, Cirrhosis, Pancreatitis, Celiac Disease, Gall Bladder Disease, Gastrointestinal Bleed, Esophageal Varices, Hubbard's Esophagus, Colitis, Ulcerative Colitis, Diverticulitis, Diverticulosis, Ulcer, Irritable Bowel, Crohn's Disease, Obstructive Bowel, Hiatal Hernia, Hemorrhoids, Gastroesophageal Reflux Disease or Obesity GENITOURINARY: Negative Genitourinary Disorders, Renal Disease, Kidney Stones, Polycystic Kidney Disease, Neurogenic Bladder, Inguinal Hernia, Dialysis or Benign Prostatic Hyperplasia REPRODUCTIVE: Negative Fibroids or Testicular Cancer MUSCULOSKELETAL: Negative Muscular Dystrophy, Myasthenia Gravis, Marfan's Syndrome, Arthritis, Rheumatoid Arthritis, Osteoporosis, Degenerative Disk Disease, Gout, Scoliosis, Fibromyalgia, Fractures, Degenerative Joint Disease, Osteomyelitis or Poliovirus ENT: Negative Cataracts, Glaucoma, Blind, Retinal Detachment, Macular Degeneration, Ear Infection, Deafness, Head Trauma or Eye Prosthesis ENDOCRINE: Positive Diabetes Mellitus Type 1 and Diabetes Mellitus Type 2; Negative Endocrine Disorders, Hypoglycemia, Cas[place]'s Syndrome, Carlitos's Disease, Hyperthyroidism, Hypothyroidism, Parathyroid Disease, Pituitary Disease, Systemic Lupus Erythematosus, Syndrome of Inappropriate Antidiuretic Hormone (SIADH), Adrenal Disease or Graves' Disease HEMATOLOGIC: Positive Anemia; Negative Blood Disorders, Leukemia, Hemophilia, Thalassemia, Sickle Cell Disease or Clotting Problems OTHER HISTORY: Negative Blood Transfusions, Blood Transfusion Reaction, Anesthesia Reactions, Organ Transplant, MRSA, VRSA, Vancomycin-Resistant Enterococci, Clostridium Difficile, Cancer or Testicular Cancer Family History FAMILY HISTORY: Negative Family Psychiatric Problems, Family Respiratory Disorders, Family Cardiac Disorders, Family Gastrointestinal Problems, Family Cancer, Family Surgery or Family Anesthesia Reaction Surgical History SURGICAL: Negative Cardiac Surgery, Pacemaker, Endocrine Surgery, Thyroidectomy, Ear Surgery, Tympanostomy Tube, Eye Surgery, Nose Surgery, Oral Surgery, Tonsillectomy, Adenoidectomy, Cochlear Implant, Corneal Transplant, Throat Surgery, Abdominal Surgery, Tracheostomy, Nephrectomy, Joint Replacement, Neurologic Surgery, Vasectomy or Organ Transplant Social History SMOKING STATUS: Smoking status: Never smoker SECOND HAND EXPOSURE: second hand exposure: No ALCOHOL: Alcohol Intake: Never ALCOHOL FREQUENCY: Alcohol Intake Frequency: 0-2 Drinks per Day HOUSING: Housing: House LIVES WITH: Lives With: Spouse Patient Portal Vicente Social History Living Situation History Housing: House Housing Other:: pt lives with and dtr Tobacco History Smoking Status: Never smoker Second Hand Smoke Exposure: No Alcohol History Alcohol Intake: Never Alcohol Intake Frequency: 0-2 Drinks per Day Domestic Abuse History Do You Feel Safe at Home: Yes Review of Systems Report any current symptoms Only answer those that you have currently: Past Medical History Past Medical History Have you ever been diagnosed with any of the following: Neurological Problems Cerebrovascular Accident (CVA): No Transient Ischemic Attacks (TIA): No Dementia: No Alzheimer's Disease: No Parkinson's Disease: No Brain Tumor: No Meningitis: No Seizures: No Epilepsy: No Multiple Sclerosis: No Cerebral Palsy: No Amyotrophic Lateral Sclerosis (ALS/Giuliana Gehrig's): No Guillain-[place] Syndrome: No Spina Bifida: No Paralysis: No Peripheral Neuropathy: No Silva's Palsy: No Subdural Hematoma: No Migraine: No Head Trauma: No Spinal Cord Injury: No Traumatic Brain Injury: No Cardiology Problems Myocardial Infarction: No Cardiac Arrhythmia: No Atrial Fibrillation: No Angina: No Heart Murmur: No Coronary Artery Disease: No Atherosclerotic Heart Disease: No Peripheral Vascular Disease: Yes Hypercholesterolemia: No Aneurysm: No Congestive Heart Failure: No Valvular Heart Disease: No Rheumatic Fever: No Edema: No Pericarditis: No Cellulitis: No Deep Vein Thrombosis: No Hypertension: Yes Hypotension: No Varicose Veins: No Respiratory Problems Chronic Obstructive Pulmonary Disease (COPD): No Asthma: No Stomache/Intestinal Problems Hepatitis: No Cirrhosis: No Pancreatitis: No Celiac Disease: No Gall Bladder Disease: No Gastrointestinal Bleed: No Esophageal Varices: No Hubbard's Esophagus: No Colitis: No Ulcerative Colitis: No Diverticulitis: No Diverticulosis: No Ulcer: No Irritable Bowel: No Crohn's Disease: No Obstructive Bowel: No Hiatal Hernia: No Hemorrhoids: No Gastroesophageal Reflux Disease: No Obesity: No Genital/Urinary Problems Renal Disease: No Kidney Stones: No Polycystic Kidney Disease: No Neurogenic Bladder: No Inguinal Hernia: No Dialysis: No Benign Prostatic Hyperplasia: No Reproductive Problems Fibroids: No Testicular Cancer: No Musculoskeletal Problems Muscular Dystrophy: No Myasthenia Gravis: No Marfan's Syndrome: No Arthritis: No Rheumatoid Arthritis: No Osteoporosis: No Degenerative Disk Disease: No Gout: No Scoliosis: No Fibromyalgia: No Fractures: No Degenerative Joint Disease: No Osteomyelitis: No Poliovirus: No Head,Eye,Nose,Throat Problems Cataracts: No Glaucoma: No Blind: No Retinal Detachment: No Macular Degeneration: No Chronic Ear Infections: No Deafness: No Eye Prosthesis: No Endocrine Problems Diabetes Mellitus Type 1: Yes Diabetes Mellitus Type 2: Yes Hypoglycemia: No [place]'s Syndrome: No [place]'s Disease: No Hyperthyroidism: No Hypothyroidism: No Parathyroid Disease: No Pituitary Disease: No Systemic Lupus Erythematosus: No Syndrome of Inappropriate Antidiuretic Hormone: No Adrenal Disease: No Graves' Disease: No Blood Problems Anemia: Yes Leukemia: No Hemophilia: No Thalassemia: No Sickle Cell Disease: No Clotting Problems: No Other Problems Blood Transfusions: No Blood Transfusion Reaction: No Anesthesia Reactions: No Organ Transplant: No MRSA: No VRSA: No Vancomycin-Resistant Enterococci: No Clostridium Difficile: No Cancer: No Surgical History Pacemaker: No Thyroidectomy: No History of Present Illness HPI Narrative 69 yo M here for a painful rash. Onset was 48 hours ago. Started upper L back and radiates to the L upper chest and L arm. Quality is burning and sharp pain worse at night. Denies any other symptoms. Review of Systems Review of Systems Systems Reviewed: All systems reviewed, normal except as documented Objective/Exam Narrative Physical exam: Constitutional: AOx3, able to speak full sentences HEENT: NC/AT, PERRLA, oral mucosa moist, neck supple CVS: RRR, S1-S2 present, no murmurs RESP: CTAB GI: non distended, non tender to palpation, NBS MSK: full ROM, no peripheral edema, peripheral pulses present Skin: painful vesicular rash appearing in a unilateral, dermatomal distribution. 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 Sensation grossly intact. Assessment & Plan Diagnosis / Problem List (1) Shingles: Status: Acute Qualifiers: Herpes zoster complications: without complications Qualified Code(s): B02.9 - Zoster without complications Plan: - Start valacyclovir 1g TID for 10 days - capsaicin cream application to the area Advanced Care Planning Advance care planning discussed with:: patient Physician Billing Established Patient Established Patient: E/M Level 3-CPT [id number] Office Procedures [facility] Level of Care Nursing/Assessment Patient Status: Established Patient Nursing Assessment/Reassessment: Medication Reconciliation, Update PMH in EMR and Vital Signs Coordination of Care: Complex Care and Chronic Disease 1-5, Consent,records obtained, informed consent, Education Simp Pt/Fam and Staff clarify orders Established Patient Charge Established Patient Point Assignment: 85 Established Patient Point Charge: EP Level 3 (35-115)
[2025-01-04 14:19] VITALS: BP 158/74; PULSE 102; RESP 16; TEMP 36.8; O2SAT 96; BMI 27.1
== END 2025-01-04 15:26 | disposition home or self-care (01) ==
LOC: HODAHC 14:08
PROVIDERS: PCP Student in an Organized Health Care Education/Training Program; Supervising Provider Internal Medicine; Visit Provider Student in an Organized Health Care Education/Training Program
DX: B02.9 Zoster without complications (principal)
CPT/HCPCS: 99213; G0463

== ENCOUNTER 2025-02-08 13:45 | Outpatient (AMB) | payer OTHER, SELFPAY ==
[2025-02-08 15:35] VITALS: BP 148/74; PULSE 84; RESP 18; TEMP 36.8; O2SAT 95; BMI 26.6
--- NOTE | 2025-02-08 15:35 | PD.RESCLINIC ---
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,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 (FreeStyle Mike 3 [place]) #2 ea 03/28/24 [Rx Confirmed 02/08/25] blood-glucose meter (Accu-Chek Guide Glucose Meter) #1 ea 04/11/24 [Rx Confirmed 02/08/25] amlodipine 10 mg tablet 10 mg PO QDAY #30 tabs 11/09/24 [Rx Confirmed 02/08/25] atorvastatin 20 mg tablet 20 mg PO QDAY #30 tabs 11/09/24 [Rx Confirmed 02/08/25] blood sugar diagnostic (OneTouch Verio test strips) #100 ea 11/09/24 [Rx Confirmed 02/08/25] clopidogrel 75 mg tablet 75 mg PO QDAY #30 tabs 11/09/24 [Rx Confirmed 02/08/25] dicyclomine 20 mg tablet 20 mg PO TID #90 tabs 11/09/24 [Rx Confirmed 02/08/25] insulin glargine 100 unit/mL (3 mL) subcutaneous pen (Basaglar KwikPen U-100 Insulin) 15 unit (0.15 mL) subcut QDAY #15 mL 11/09/24 [Rx Confirmed 02/08/25] lancets 28 gauge (Lancets,Thin) #100 ea 11/09/24 [Rx Confirmed 02/08/25] losartan 25 mg tablet 50 mg (2 x 25 mg) PO QDAY #30 tabs 11/09/24 [Rx Confirmed 02/08/25] metformin 1,000 mg tablet 1,000 mg PO BID #60 tabs 11/09/24 [Rx Confirmed 02/08/25] pen needle, diabetic 32 gauge x 1/4 (Comfort EZ Pen [place]) #100 ea 11/09/24 [Rx Confirmed 02/08/25] capsaicin 0.1 % topical cream 1 applic topical BID #60 grams 01/04/25 [Rx Confirmed 02/08/25] valacyclovir 1 gram tablet 1,000 mg PO TID #30 tabs 01/04/25 [Rx Confirmed 02/08/25] carboxymethylcellulose sodium 1 % eye drops (Artificial Tears (carboxymethylcellulose)) 1 drp Both eyes TID #15 mL 02/08/25 [Rx Confirmed 02/08/25] gabapentin 100 mg capsule 100 mg PO QHS #30 caps 02/08/25 [Rx Confirmed 02/08/25] MA Intake Visit Data Collection New Patient or Established: Established Patient (seen at [facility] within 3 years) Seen by Clinical Staff ONLY (RN/CHRISTINE): No Pain Present Currently: No Pain scale:: 0 Pain Scale Used: Chambers-Orellana/Numerical Caddy/Caddie Supervisor Required: No PCP or OBGYN visit in last 3 months: No Hx Now: No Do You Feel Safe at Home: Yes Authorities Contacted: N/A Smoking Status Smoking Status: Never smoker Immunization / Flu Flu Vaccine in the Last 12 Months: No Flu Vaccine Exclusion Criteria: Refused by Patient Past Medical History Past Medical History NEUROLOGIC: Negative Neurological Disorders, Cerebrovascular Accident, Transient Ischemic Attacks (TIA), Dementia, Alzheimer's Disease, Parkinson's Disease, Brain Tumor, Meningitis, Seizures, Epilepsy, Multiple Sclerosis, Cerebral Palsy, Amyotrophic Lateral Sclerosis (ALS/Giuliana Gehrig's), Guillain-Deputy Syndrome, Spina Bifida, Paralysis, Peripheral Neuropathy, Silva's Palsy, Subdural Hematoma, Migraine, Head Trauma, Spinal Cord Injury or Traumatic Brain Injury CARDIAC: Positive Peripheral Vascular Disease and Hypertension; Negative Cardiac Disorders, Myocardial Infarction, Cardiac Arrhythmia, Atrial Fibrillation, Angina, Heart Murmur, Coronary Artery Disease, Atherosclerotic Heart Disease, Hypercholesterolemia, Aneurysm, Congestive Heart Failure, Valvular Heart Disease, Rheumatic Fever, Edema, Pericarditis, Cellulitis, Deep Vein Thrombosis, Hypotension or Varicose Veins RESPIRATORY: Negative Chronic Obstructive Pulmonary Disease (COPD) or Asthma GASTROINTESTINAL: Negative Gastrointestinal Disorders, Hepatitis, Cirrhosis, Pancreatitis, Celiac Disease, Gall Bladder Disease, Gastrointestinal Bleed, Esophageal Varices, Hubbard's Esophagus, Colitis, Ulcerative Colitis, Diverticulitis, Diverticulosis, Ulcer, Irritable Bowel, Crohn's Disease, Obstructive Bowel, Hiatal Hernia, Hemorrhoids, Gastroesophageal Reflux Disease or Obesity GENITOURINARY: Negative Genitourinary Disorders, Renal Disease, Kidney Stones, Polycystic Kidney Disease, Neurogenic Bladder, Inguinal Hernia, Dialysis or Benign Prostatic Hyperplasia REPRODUCTIVE: Negative Fibroids or Testicular Cancer MUSCULOSKELETAL: Negative Muscular Dystrophy, Myasthenia Gravis, Marfan's Syndrome, Arthritis, Rheumatoid Arthritis, Osteoporosis, Degenerative Disk Disease, Gout, Scoliosis, Fibromyalgia, Fractures, Degenerative Joint Disease, Osteomyelitis or Poliovirus ENT: Negative Cataracts, Glaucoma, Blind, Retinal Detachment, Macular Degeneration, Ear Infection, Deafness, Head Trauma or Eye Prosthesis ENDOCRINE: Positive Diabetes Mellitus Type 1 and Diabetes Mellitus Type 2; Negative Endocrine Disorders, Hypoglycemia, [place]'s Syndrome, Galax's Disease, Hyperthyroidism, Hypothyroidism, Parathyroid Disease, Pituitary Disease, Systemic Lupus Erythematosus, Syndrome of Inappropriate Antidiuretic Hormone (SIADH), Adrenal Disease or Graves' Disease HEMATOLOGIC: Positive Anemia; Negative Blood Disorders, Leukemia, Hemophilia, Thalassemia, Sickle Cell Disease or Clotting Problems OTHER HISTORY: Negative Blood Transfusions, Blood Transfusion Reaction, Anesthesia Reactions, Organ Transplant, MRSA, VRSA, Vancomycin-Resistant Enterococci, Clostridium Difficile, Cancer or Testicular Cancer Family History FAMILY HISTORY: Negative Family Psychiatric Problems, Family Respiratory Disorders, Family Cardiac Disorders, Family Gastrointestinal Problems, Family Cancer, Family Surgery or Family Anesthesia Reaction Surgical History SURGICAL: Negative Cardiac Surgery, Pacemaker, Endocrine Surgery, Thyroidectomy, Ear Surgery, Tympanostomy Tube, Eye Surgery, Nose Surgery, Oral Surgery, Tonsillectomy, Adenoidectomy, Cochlear Implant, Corneal Transplant, Throat Surgery, Abdominal Surgery, Tracheostomy, Nephrectomy, Joint Replacement, Neurologic Surgery, Vasectomy or Organ Transplant Social History SMOKING STATUS: Smoking status: Never smoker SECOND HAND EXPOSURE: second hand exposure: No ALCOHOL: Alcohol Intake: Never ALCOHOL FREQUENCY: Alcohol Intake Frequency: 0-2 Drinks per Day HOUSING: Housing: House LIVES WITH: Lives With: Spouse Patient Brittany Zhang Social History Living Situation History Housing: House Housing Other:: pt lives with and dtr Tobacco History Smoking Status: Never smoker Second Hand Smoke Exposure: No Alcohol History Alcohol Intake: Never Alcohol Intake Frequency: 0-2 Drinks per Day Domestic Abuse History Do You Feel Safe at Home: Yes Review of Systems Report any current symptoms Only answer those that you have currently: Past Medical History Past Medical History Have you ever been diagnosed with any of the following: Neurological Problems Cerebrovascular Accident (CVA): No Transient Ischemic Attacks (TIA): No Dementia: No Alzheimer's Disease: No Parkinson's Disease: No Brain Tumor: No Meningitis: No Seizures: No Epilepsy: No Multiple Sclerosis: No Cerebral Palsy: No Amyotrophic Lateral Sclerosis (ALS/Giuliana Gehrig's): No Guillain-Deputy Syndrome: No Spina Bifida: No Paralysis: No Peripheral Neuropathy: No Silva's Palsy: No Subdural Hematoma: No Migraine: No Head Trauma: No Spinal Cord Injury: No Traumatic Brain Injury: No Cardiology Problems Myocardial Infarction: No Cardiac Arrhythmia: No Atrial Fibrillation: No Angina: No Heart Murmur: No Coronary Artery Disease: No Atherosclerotic Heart Disease: No Peripheral Vascular Disease: Yes Hypercholesterolemia: No Aneurysm: No Congestive Heart Failure: No Valvular Heart Disease: No Rheumatic Fever: No Edema: No Pericarditis: No Cellulitis: No Deep Vein Thrombosis: No Hypertension: Yes Hypotension: No Varicose Veins: No Respiratory Problems Chronic Obstructive Pulmonary Disease (COPD): No Asthma: No Stomache/Intestinal Problems Hepatitis: No Cirrhosis: No Pancreatitis: No Celiac Disease: No Gall Bladder Disease: No Gastrointestinal Bleed: No Esophageal Varices: No Hubbard's Esophagus: No Colitis: No Ulcerative Colitis: No Diverticulitis: No Diverticulosis: No Ulcer: No Irritable Bowel: No Crohn's Disease: No Obstructive Bowel: No Hiatal Hernia: No Hemorrhoids: No Gastroesophageal Reflux Disease: No Obesity: No Genital/Urinary Problems Renal Disease: No Kidney Stones: No Polycystic Kidney Disease: No Neurogenic Bladder: No Inguinal Hernia: No Dialysis: No Benign Prostatic Hyperplasia: No Reproductive Problems Fibroids: No Testicular Cancer: No Musculoskeletal Problems Muscular Dystrophy: No Myasthenia Gravis: No Marfan's Syndrome: No Arthritis: No Rheumatoid Arthritis: No Osteoporosis: No Degenerative Disk Disease: No Gout: No Scoliosis: No Fibromyalgia: No Fractures: No Degenerative Joint Disease: No Osteomyelitis: No Poliovirus: No Head,Eye,Nose,Throat Problems Cataracts: No Glaucoma: No Blind: No Retinal Detachment: No Macular Degeneration: No Chronic Ear Infections: No Deafness: No Eye Prosthesis: No Endocrine Problems Diabetes Mellitus Type 1: Yes Diabetes Mellitus Type 2: Yes Hypoglycemia: No Casandra's Syndrome: No Carlitos's Disease: No Hyperthyroidism: No Hypothyroidism: No Parathyroid Disease: No Pituitary Disease: No Systemic Lupus Erythematosus: No Syndrome of Inappropriate Antidiuretic Hormone: No Adrenal Disease: No Graves' Disease: No Blood Problems Anemia: Yes Leukemia: No Hemophilia: No Thalassemia: No Sickle Cell Disease: No Clotting Problems: No Other Problems Blood Transfusions: No Blood Transfusion Reaction: No Anesthesia Reactions: No Organ Transplant: No MRSA: No VRSA: No Vancomycin-Resistant Enterococci: No Clostridium Difficile: No Cancer: No Surgical History Pacemaker: No Thyroidectomy: No History of Present Illness HPI Narrative Patient is here for f/u after shingles treatment. Rash is gone, complains a some pain lingering afterwards. Denies any other complains. Review of Systems Review of Systems Systems Reviewed: All systems reviewed, normal except as documented Objective/Exam Narrative Physical exam: Constitutional: AOx3, able to speak full sentences HEENT: NC/AT, PERRLA, oral mucosa moist, neck supple CVS: RRR, S1-S2 present, no murmurs RESP: CTAB GI: non distended, non tender to palpation, NBS MSK: full ROM, no peripheral edema, peripheral pulses present Skin: resolved painful vesicular rash appearing in a unilateral, dermatomal distribution. 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 Sensation grossly intact. Assessment & Plan Diagnosis / Problem List (1) Post herpetic neuralgia: Status: Acute Plan: -start gabapentin 100mg HS Advanced Care Planning Advance care planning discussed with:: patient and spouse Physician Billing Established Patient Established Patient: E/M Level 3-CPT 85349 Office Procedures [facility] Level of Care Nursing/Assessment Patient Status: Established Patient Nursing Assessment/Reassessment: Medication Reconciliation, Update PMH in EMR and Vital Signs Coordination of Care: Complex Care and Chronic Disease 1-5, Consent,records obtained, informed consent, Education Simp Pt/Fam and Staff clarify orders Established Patient Charge Established Patient Point Assignment: 85 Established Patient Point Charge: Level 3 (80-115)
== END 2025-02-08 14:35 | disposition home or self-care (01) ==
LOC: HODAHC 13:45
PROVIDERS: PCP Student in an Organized Health Care Education/Training Program; Referring Provider Student in an Organized Health Care Education/Training Program; Supervising Provider Internal Medicine; Visit Provider Student in an Organized Health Care Education/Training Program
DX: Z09 Encounter for follow-up examination after completed treatment for conditions other than malignant neoplasm (principal); Z86.19 Personal history of other infectious and parasitic diseases; B02.29 Other postherpetic nervous system involvement
CPT/HCPCS: 99213; G0463